=== PATIENT | male | born 1965 | race Caucasian/White ===

== ENCOUNTER 2025-03-13 11:28 | Emergency (ER) | payer OTHER ==
[2025-03-13 11:43] LABS: BASOPHILS ABSOLUTE AUTO 0.05 10^3/uL (0.00-0.50); BASOPHILS PERCENT AUTO 0.6 % (0-1); EOSINOPHILS ABSOLUTE AUTO 0.21 10^3/uL (0.00-1.50); EOSINOPHILS PERCENT AUTO 2.5 % (0-6); IMMATURE GRAN ABSOLUTE AUTO 0.03 10^3/uL (0.00-0.49); IMMATURE GRAN PERCENT AUTO 0.4 % (0.0-4.9); LYMPHOCYTES ABSOLUTE AUTO 2.70 10^3/uL (0.60-5.00); LYMPHOCYTES PERCENT AUTO 32.1 % (24-44); MONOCYTES ABSOLUTE AUTO 0.70 10^3/uL (0.00-1.50); MONOCYTES PERCENT AUTO 8.3 % (0-10); NEUTROPHILS ABSOLUTE AUTO 4.71 x10^3/uL (1.80-8.00); NEUTROPHILS PERCENT AUTO 56.1 % (41-71); PLATELET COUNT,PLT 221 10^3/uL (150-400); RED BLOOD CELL COUNT 5.06 x10^6/uL (4.50-6.00); WHITE BLOOD CELL COUNT,WBC 8.4 10^3/uL (4.0-11.0)
[2025-03-13 12:14] LABS: ALANINE AMINOTRANSFERASE,ALT 34.0 U/L (12-78); ASPARTATE AMNIOTRANSFERASE,AST 17.0 U/L (15-37); BILIRUBIN TOTAL 0.5 mg/dL (0.0-1.0); BLOOD UREA NITROGEN,BUN 22.0 mg/dL (7-18); CARBON DIOXIDE,CO2 28.0 mmol/L (21-32); CHLORIDE,CL 98.0 mEq/L (98-106); CREATININE 1.0 mg/dL (0.7-1.3); EST CRCL DRUG DOSING (CG) 86.22 mL/min; ESTIMATED GFR 86.0 mL/min (>=60); GLUCOSE RANDOM 134.0 mg/dL (75-99); POTASSIUM,K 4.2 mEq/L (3.5-5.0); PROTEIN TOTAL,TP 7.3 g/dL (6.4-8.2); SODIUM,NA 137.0 mEq/L (136-145)
== END 2025-03-13 12:34 | disposition home or self-care (01) ==
LOC: CC.ED 11:28
DX: M11.272 Other chondrocalcinosis, left ankle and foot (principal); I10 Essential (primary) hypertension; F17.290 Nicotine dependence, other tobacco product, uncomplicated; Z79.899 Other long term (current) drug therapy
CPT/HCPCS: 36415; 73630-LT; 80053; 84550; 85025; 86140; 99283